=== PATIENT | male | born 1965 | race Two or more races ===

== ENCOUNTER → 2017-06-24 | Day surgery (SDC) | payer BC ==
[~2017-06-24] MED LIST: GABA-586 PO; GABA-587 PO; HYDR12.58 PO; HYDROmorphone 2 MG/ML VIAL IV PRN; IBUP-1060 PO; INSU100I13 SQ; INSU100I15 SQ; IV RINGERS,LACTATED 1000ML 1,000 ML IV SCH; LIDOCAINE 1% PF 2 ML VIAL. ID PRN; LIDOCAINE 2% PF Vial for OR 5 ML VIAL. ONE; LISI-334 PO; METF-620 PO; METF1000 PO; MORPHINE SULFATE 4 MG/ML DISP.SYRIN. IV PRN; NAPR-683 PO; OMEP40CA5 PO; ONDANSETRON PF 4 MG/2 ML VIAL. IV PRN; PROCHLORPERAZINE 10 MG/2 ML VIAL. IV PRN; PROPOFOL 20 ML IV ONE; TRAM50TA PO; fentaNYL PF VIAL 100 MCG/2 ML VIAL IV PRN
[2017-06-24 07:58] VITALS: BP 118/69
--- NOTE | 2017-06-27 13:19 | PATHOLOGY ---
PATHOLOGY REPORT * * * * * * * * FINAL DIAGNOSIS: Colon biopsy, sigmoid colon polyp: - Hyperplastic polyp. COMMENT: There are no adenomatous changes or evidence of malignancy. (JPM:mml; 06/27/2017) REPORT ELECTRONICALLY SIGNED BY: Armando Maradiaga M.D. DATE/TIME: 06/27/2017 13:18 * * * * * * * * GROSS PATHOLOGY: Received in formalin labeled "Edmund Landeros, sigmoid polyp BX," is a segment of ulloa soft tissue measuring 0.4 cm in maximum dimension. The specimen is submitted entirely in cassette A1. (TSD; 06/24/2017) INITIAL CPT CODE(S): A; 75812 Professional services performed by [facility] [place] [address] Technical services performed by [facility] at [address] [place] [address] [address] [address]. SPECIMEN(S) RECEIVED: A.Sigmoid polyp biopsy CLINICAL HISTORY: Screening PATIENT: EDMUND LANDEROS /AGE: 1 1965 (Age: 51) PATIENT #: [id number] ALT CASE #: SPECIMEN COLLECTION DATE: 06/24/2017 SPECIMEN RECEIVED DATE: 06/24/2017 [facility] - [address] [place] [address] - PHONE: [phone] * * * END OF REPORT * * *
== END | disposition home or self-care (01) ==
LOC: ENDOS 05:56
PROVIDERS: ATTEND Internal Medicine Gastroenterology
DX: D12.5 Benign neoplasm of sigmoid colon (principal); K64.0 First degree hemorrhoids; I10 Essential (primary) hypertension; K21.9 Gastro-esophageal reflux disease without esophagitis; E11.9 Type 2 diabetes mellitus without complications
CPT/HCPCS: 45380; 88305; J2704; J2001

== ENCOUNTER 2019-11-25 21:39 | Emergency (ER) | payer BC ==
[~2019-11-25] VITALS: Ht 165.1 cm; Wt 81.8 kg
[~2019-11-25 21:39] MED LIST changes: -GABA-586 PO; -GABA-587 PO; +GABA-689 PO; +GABA300C18 PO; -HYDROmorphone 2 MG/ML VIAL IV PRN; -IV RINGERS,LACTATED 1000ML 1,000 ML IV SCH; -LIDOCAINE 1% PF 2 ML VIAL. ID PRN; -LIDOCAINE 2% PF Vial for OR 5 ML VIAL. ONE; -METF-620 PO; +METF10007 PO; -MORPHINE SULFATE 4 MG/ML DISP.SYRIN. IV PRN; +OMEP40CA45 PO; -OMEP40CA5 PO; -ONDANSETRON PF 4 MG/2 ML VIAL. IV PRN; -PROCHLORPERAZINE 10 MG/2 ML VIAL. IV PRN; -PROPOFOL 20 ML IV ONE; -fentaNYL PF VIAL 100 MCG/2 ML VIAL IV PRN
[2019-11-25] MEDS ORDERED: IV NORMAL SALINE 500ML BAG 500 ML IV SCH (22:00)
--- NOTE | 2019-11-25 22:15 | PHYS DOC ---
Adult General Chief Complaint Chief Complaint: RECTAL BLEED HPI HPI Patient is a 54 year old male with history of hypertension and diabetes mellitus who presents with complaint of rectal bleeding. Patient states he had a normal bowel movement around 1400 today and since then had bright red bleeding from his rectum that became worse prior to arrival to ER and had to use a pad. Patient denies rectal pain, abdominal pain, dizziness, shortness of breath, history of the same problem, history of hemorrhoid or constipation. Patient had blood dripping from his pants at arrival to ER. Review of Systems Review of Systems Constitutional: Denies fever or chills [] Eyes: Denies change in visual acuity, redness, or eye pain [] HENT: Denies nasal congestion or sore throat [] Respiratory: Denies cough or shortness of breath [] Cardiovascular: No additional information not addressed in HPI [] GI: Denies abdominal pain, nausea, vomiting, diarrhea, reports rectal bleed : Denies dysuria or hematuria [] Musculoskeletal: Denies back pain or joint pain [] Integument: Denies rash or skin lesions [] Neurologic: Denies headache, focal weakness or sensory changes [] Endocrine: Denies polyuria or polydipsia [] All other systems were reviewed and found to be within normal limits, except as documented in this note. Current Medications Current Medications Current Medications Medications (Trade) Dose Ordered Sig/Yumiko Start Time Stop Time Status Last Admin Dose Admin Info (CONTRAST GIVEN -- Rx MONITORING) 1 each PRN DAILY PRN 11/25/19 22:45 11/26/19 00:05 DC Iohexol (Omnipaque 300 Mg/ml) 75 ml 1X ONCE 11/25/19 22:45 11/25/19 22:46 DC 11/25/19 22:59 75 ML Sodium Chloride 500 ml @ 500 mls/hr 1X ONCE 11/25/19 22:30 11/25/19 23:29 DC 11/25/19 22:23 500 MLS/HR Allergies Allergies Allergies Coded Allergies Type Severity Reaction Last Updated Verified No Known Drug Allergies 06/24/17 No Physical Exam Physical Exam Constitutional: Well developed, well nourished, mild distress, non-toxic appearance. [] HENT: Normocephalic, atraumatic. Eyes: PERRLA, EOMI, conjunctiva normal, no discharge. [] Neck: Normal range of motion, no tenderness, supple, no stridor. [] Cardiovascular:Heart rate regular rhythm, no murmur [] Lungs & Thorax: Bilateral breath sounds clear to auscultation [] Abdomen: Bowel sounds normal, soft, no tenderness, no masses, no pulsatile masses. Rectal exam in presence of plant anatomist showed fresh bright red and blood clot around rectum, few external hemorrhoid tag, no rectal mass or internal bleeding, After cleaning the blood from perianal area, bleeding was stopped. ] Skin: Warm, dry, no erythema, no rash. [] Back: No tenderness, no CVA tenderness. [] Extremities: No tenderness, no cyanosis, no clubbing, ROM intact, no edema. [] Neurologic: Alert and oriented X 3, no focal deficits noted. [] Psychologic: Affect normal, judgement normal, mood normal. [] Current Patient Data Vital Signs Vital Signs Date Time Temp Pulse Resp B/P (MAP) Pulse Ox O2 Delivery O2 Flow Rate FiO2 11/25/19 23:57 95 18 140/69 (92) 96 Room Air 11/25/19 21:51 98.2 98.2 Lab Values Laboratory Tests Test 11/25/19 22:12 11/25/19 22:45 White Blood Count 8.4 x10^3/uL (4.0-11.0) Red Blood Count 3.82 x10^6/uL (4.30-5.70) L Hemoglobin 12.7 g/dL (13.0-17.5) L Hematocrit 35.2 % (39.0-53.0) L Mean Corpuscular Volume 92 fL (79-100) Mean Corpuscular Hemoglobin 33 pg (25-35) Mean Corpuscular Hemoglobin Concent 36 g/dL (31-37) Red Cell Distribution Width 12.3 % (11.5-14.5) Platelet Count 184 x10^3/uL (140-400) Neutrophils (%) (Auto) 35 % (31-73) Lymphocytes (%) (Auto) 53 % (24-48) H Monocytes (%) (Auto) 8 % (0-9) Eosinophils (%) (Auto) 2 % (0-3) Basophils (%) (Auto) 1 % (0-3) Neutrophils # (Auto) 3.0 x10^3/uL (1.8-7.7) Lymphocytes # (Auto) 4.5 x10^3/uL (1.0-4.8) Monocytes # (Auto) 0.7 x10^3/uL (0.0-1.1) Eosinophils # (Auto) 0.2 x10^3/uL (0.0-0.7) Basophils # (Auto) 0.1 x10^3/uL (0.0-0.2) Prothrombin Time 12.9 SEC (11.7-14.0) Prothrombin Time INR 1.0 (0.8-1.1) Activated Partial Thromboplast Time 32 SEC (24-38) Sodium Level 139 mmol/L (136-145) Potassium Level 3.3 mmol/L (3.5-5.1) L Chloride Level 103 mmol/L (98-107) Carbon Dioxide Level 22 mmol/L (21-32) Anion Gap 14 (6-14) Blood Urea Nitrogen 19 mg/dL (8-26) Creatinine 1.1 mg/dL (0.7-1.3) Estimated GFR (Cockcroft-Gault) 69.2 BUN/Creatinine Ratio 17 (6-20) Glucose Level 112 mg/dL (70-99) H Calcium Level 9.1 mg/dL (8.5-10.1) Total Bilirubin 0.4 mg/dL (0.2-1.0) Aspartate Amino Transferase (AST) 90 U/L (15-37) H Alanine Aminotransferase (ALT) 178 U/L (16-63) H Alkaline Phosphatase 172 U/L (46-116) H Total Protein 7.8 g/dL (6.4-8.2) Albumin 3.8 g/dL (3.4-5.0) Albumin/Globulin Ratio 1.0 (1.0-1.7) Urine Collection Type Unknown Urine Color Yellow Urine Clarity Clear Urine pH 5.0 Urine Specific [place] 1.010 Urine Protein Negative mg/dL (NEG-TRACE) Urine Glucose (UA) 100 mg/dL (NEG) Urine Ketones (Stick) Negative mg/dL (NEG) Urine Blood Negative (NEG) Urine Nitrite Negative (NEG) Urine Bilirubin Negative (NEG) Urine Urobilinogen Dipstick 0.2 mg/dL (0.2 mg/dL) Urine Leukocyte Esterase Negative (NEG) Urine RBC Rare /HPF (0-2) Urine WBC 0 /HPF (0-4) Urine Squamous Epithelial Cells Few /LPF Urine Bacteria 0 /HPF (0-FEW) Urine Mucus Slight /LPF Laboratory Tests 11/25/19 22:12 Laboratory Tests 11/25/19 22:12 EKG EKG [] Radiology/Procedures Radiology/Procedures [facility] [address] [place] [address] IMAGING REPORT Signed PATIENT: VIRGINIA ZEPEDA ACCOUNT: [id number] : 1965 LOCATION: ER AGE: 54 SEX: M EXAM STATUS: REG ER ORD. PHYSICIAN: JENIFER CARRINGTON MD REASON: Rectal bleed, OMNI 300, 75 ML IV PROCEDURE: CT ABD PELV W/ IV CONTRST ONLY Exam: CT abdomen and pelvis with contrast INDICATION: Rectal bleeding TECHNIQUE: Sequential axial images through the abdomen and pelvis obtained following the administration of 75 mL of Omni 300 IV contrast. Sagittal and coronal reformatted images were reconstructed from the axial data and reviewed. Comparisons: None FINDINGS: Heart size is normal. No pericardial effusion. Visualized lung bases are clear. No pleural effusion. Liver, spleen, pancreas, gallbladder and adrenals are unremarkable. Kidneys demonstrate symmetric enhancement. No perinephric inflammation or hydronephrosis. No renal or ureteral calculi are identified. Bladder is distended and appears thin-walled. Prostate is not enlarged. Large and small bowel are unremarkable. Appendix is not identified. No free intra-abdominal air or fluid. No obstruction. Abdominal aorta has a normal course and caliber. Abdominal vasculature is patent. No enlarged intra-abdominal lymph nodes are identified. No suspicious osseous lesions or acute fractures. IMPRESSION: No acute process identified within the abdomen or pelvis. Exposure: One or more of the following in the visualized dose reduction techniques were utilized for this examination: 1. Automated exposure control 2. Adjustment of the MA and/or KV according to patient size 3. Use of iterative of reconstructive technique Electronically signed by: Giuliana Adler MD (11/25/2019 11:16 PM) [id number] DICTATED and SIGNED BY: GIULIANA ADLER MD DATE: 11/25/19 2319 Course & Med Decision Making Course & Med Decision Making Pertinent Labs and Imaging studies reviewed. (See chart for details) Evaluation of patient #54-year-old male patient with complaint of rectal bleeding with bright red blood for several hours. Patient had external hemorrhoids with blood clot in perianal area without bleeding inside of the rectum. Blood clot was cleaned and patient did not have any more bleeding while he was in ER. Patient had elevation of liver enzymes and stated he drink several cans of beer at least once a week and was advised to quit drinking alcohol. Patient was advised to follow-up with GI specialist. Patient stated he had colonoscopy 2 years ago without any problem. Patient was advised to take sitz bath and avoid of constipation and diarrhea. I've spoken with the patient and/or caregivers. I've explained the patient's co ndition, diagnosis and treatment plan based on information available to me at this time. I've answered the patient's and/or caregivers questions and addressed any concerns. The patient and/or caregivers have a good understanding the patient's diagnosis, condition and treatment plan as can be expected at this point. Vital signs have been stabilized. The patient's condition is stable for discharge from the emergency department. The patient will pursue further outpatient evaluation with her primary care provider or other designated consulting physician as outlined in the discharge instructions. Patient and/or caregivers are agreeable to this plan of care and follow-up instructions have been explained in detail. The patient and/or caregivers have received these instructions in written format and expressed understanding of these discharge instructions. The patient and her caregivers are aware that if any significant change in condition or worsening of symptoms should prompt him to immediately return to this of the closest emergency department. If an emergent department is not readily available I would encourage him to call 911. Shirley Disclaimer Dragon Disclaimer This electronic medical record was generated, in whole or in part, using a voice recognition dictation system. Departure Departure Impression: Primary Impression: External bleeding hemorrhoids Additional Impression: Elevated liver function tests Disposition: HOME, SELF-CARE (At 2342) Condition: IMPROVED Referrals: PIERRE SPARROW MD (PCP) FAB MCGEE MD Patient Instructions: Disposable Sitz Bath, Hemorrhoids, Sitz Bath Additional Instructions: Drink plenty of liquids Follow-up with your primary care physician in 2-3 days Return to ER if not getting better Follow-up with GI specialist in 2 or 3 Stop drinking alcohol Thank you for visiting [facility]. We appreciate you trusting us with your care. If any additional problems come up don't hesitate to return to visit us. Please follow up with your primary care provider so they can plan additional care if needed and know about the problem that you had. If symptoms worsen come back to the Emergency Department. Any concerning symptoms that start such as chest pain, shortness of air, weakness or numbness on one side of the body, running high fevers or any other concerning symptoms return to the ER. Scripts Hydrocortisone Acetate (ANUCORT-HC) 25 Mg Supp.rect 25 MG RC BID, #1 SUPP.RECT Prov: JENIFER CARRINGTON MD 11/25/19 Problem Qualifiers JENIFER CARRINGTON MD Nov 25, 2019 22:15
[2019-11-25 22:22] LABS: BASO # 0.1 x10^3/uL (0.0-0.2); BASO % 1 % (0-3); EOS # 0.2 x10^3/uL (0.0-0.7); EOS % 2 % (0-3); HEMATOCRIT 35.2 % (39.0-53.0); HEMOGLOBIN 12.7 g/dL (13.0-17.5); LYMPH # 4.5 x10^3/uL (1.0-4.8); LYMPH % 53 % (24-48); MEAN CORPUSCULAR HEMOGLOBIN 33 pg (25-35); MEAN CORPUSCULAR HGB CONC 36 g/dL (31-37); MEAN CORPUSCULAR VOLUME 92 fL (79-100); MONO # 0.7 x10^3/uL (0.0-1.1); MONO % 8 % (0-9); NEUT % 35 % (31-73); PLATELET COUNT 184 x10^3/uL (140-400); RED BLOOD COUNT 3.82 x10^6/uL (4.30-5.70); RED CELL DISTRIBUTION WIDTH 12.3 % (11.5-14.5); WHITE BLOOD COUNT 8.4 x10^3/uL (4.0-11.0)
[2019-11-25 22:29] LABS: CALCIUM 9.1 mg/dL (8.5-10.1); CREATININE 1.1 mg/dL (0.7-1.3); GFR 69.2; POTASSIUM 3.3 mmol/L (3.5-5.1)
[2019-11-25] MEDS ORDERED: IV NORMAL SALINE 500ML BAG 500 ML IV ONE (22:30)
[2019-11-25 22:39] LABS: PROTHROMBIN TIME PATIENT 12.9 SEC (11.7-14.0)
[2019-11-25 22:40] LABS: ALBUMIN 3.8 g/dL (3.4-5.0); TOTAL BILIRUBIN 0.4 mg/dL (0.2-1.0); TOTAL PROTEIN 7.8 g/dL (6.4-8.2)
[2019-11-25] MEDS ORDERED: IOHEXOL 300 MG/ML 100ML VIAL. IV ONE (22:45)
[2019-11-25] MEDS ORDERED: CONTRAST GIVEN. MC PRN (22:45)
[2019-11-25 22:52] LABS: BILIRUBIN,URINE NEGATIVE (NEG); CLARITY,URINE CLEAR; COLOR,URINE YELLOW; NITRITE,URINE NEGATIVE (NEG); PROTEIN,URINE NEGATIVE (NEG-TRACE); UROBILINOGEN,URINE 0.2 mg/dL (0.2 mg/dL)
[2019-11-25 23:04] LABS: SQUAMOUS EPITHELIAL CELL,UR FEW /LPF
[2019-11-25 23:05] LABS: BACTERIA,URINE 0 /HPF (0-FEW); RBC,URINE RARE /HPF (0-2); WBC,URINE 0 /HPF (0-4)
--- NOTE | 2019-11-25 23:19 | RAD ---
Exam: CT abdomen and pelvis with contrast INDICATION: Rectal bleeding TECHNIQUE: Sequential axial images through the abdomen and pelvis obtained following the administration of 75 mL of Omni 300 IV contrast. Sagittal and coronal reformatted images were reconstructed from the axial data and reviewed. Comparisons: None FINDINGS: Heart size is normal. No pericardial effusion. Visualized lung bases are clear. No pleural effusion. Liver, spleen, pancreas, gallbladder and adrenals are unremarkable. Kidneys demonstrate symmetric enhancement. No perinephric inflammation or hydronephrosis. No renal or ureteral calculi are identified. Bladder is distended and appears thin-walled. Prostate is not enlarged. Large and small bowel are unremarkable. Appendix is not identified. No free intra-abdominal air or fluid. No obstruction. Abdominal aorta has a normal course and caliber. Abdominal vasculature is patent. No enlarged intra-abdominal lymph nodes are identified. No suspicious osseous lesions or acute fractures. IMPRESSION: No acute process identified within the abdomen or pelvis. Exposure: One or more of the following in the visualized dose reduction techniques were utilized for this examination: 1. Automated exposure control 2. Adjustment of the MA and/or KV according to patient size 3. Use of iterative of reconstructive technique Electronically signed by: Giuliana Jonas MD (11/25/2019 11:16 PM) [id number]
[2019-11-25] MEDS ORDERED: HYDR25SU4 RC ×2 (23:46)
[2019-11-25 23:57] VITALS: BP 140/69
== END 2019-11-25 23:57 | disposition home or self-care (01) ==
LOC: ER 21:39
DX: K64.4 Residual hemorrhoidal skin tags (principal); R79.89 Other specified abnormal findings of blood chemistry; I10 Essential (primary) hypertension; E11.9 Type 2 diabetes mellitus without complications
CPT/HCPCS: 36415; 74177; 80053; 81001; 85025; 85610; 85730; 86850; 86900; 86901; 99285; J7040; Q9967

== ENCOUNTER 2021-10-12 07:07 | Emergency (ER) | payer BC ==
[~2021-10-12] VITALS: Ht 167.6 cm; Wt 90.4 kg
[~2021-10-12 07:07] MED LIST changes: +HYDR25SU4 RC; -LISI-334 PO; +LISI20TA18 PO; -OMEP40CA45 PO; +OMEP40CA7 PO
[2021-10-12 07:45] LABS: BASO % 1 % (0-3); EOS # 0.2 x10^3/uL (0.0-0.7); EOS % 3 % (0-3); HEMATOCRIT 39.5 % (39.0-53.0); HEMOGLOBIN 13.2 g/dL (13.0-17.5); LYMPH # 3.3 x10^3/uL (1.0-4.8); LYMPH % 47 % (24-48); MEAN CORPUSCULAR HEMOGLOBIN 32 pg (25-35); MEAN CORPUSCULAR HGB CONC 33 g/dL (31-37); MEAN CORPUSCULAR VOLUME 96 fL (79-100); MONO # 0.5 x10^3/uL (0.0-1.1); MONO % 7 % (0-9); NEUT % 43 % (31-73); PLATELET COUNT 224 x10^3/uL (140-400); RED BLOOD COUNT 4.13 x10^6/uL (4.30-5.70); RED CELL DISTRIBUTION WIDTH 12.6 % (11.5-14.5); WHITE BLOOD COUNT 7.1 x10^3/uL (4.0-11.0)
[2021-10-12] MEDS ORDERED: IOHEXOL 300 MG/ML 100ML VIAL. IV ONE (07:45)
[2021-10-12 07:58] LABS: CALCIUM 8.9 mg/dL (8.5-10.1); CREATININE 1.1 mg/dL (0.7-1.3); POTASSIUM 3.7 mmol/L (3.5-5.1)
--- NOTE | 2021-10-12 08:31 | RAD ---
EXAM: CT HEAD WITHOUT CONTRAST. HISTORY: Headache, right facial droop. TECHNIQUE: Computed tomography of the head was performed without intravenous contrast. One or more of the following individualized dose reduction techniques were utilized for this examination: 1. Automated exposure control. 2. Adjustment of the mA and/or kV according to patient size. 3. Use of iterative reconstruction technique. COMPARISON: None. FINDINGS: There is no intracranial hemorrhage. James-white differentiation is preserved. The ventricle s are normal in size and position. The visualized paranasal sinuses appear clear. There is a chronic depressed fracture of the left medi al orbital wall. The temporal bones are unremarkable. The calvarium reveals no suspicious lesions. IMPRESSION: 1. No acute intracranial findings. Electronically signed by: Rusty Maza MD (10/12/2021 8:29 AM) [id number]
--- NOTE | 2021-10-12 08:36 | RAD ---
EXAM: 1. CTA HEAD WITH AND WITHOUT CONTRAST. 2. CTA NECK WITH AND WITHOUT CONTRAST. HISTORY: Headache, right facial droop. TECHNIQUE: Computed tomographic angiography of the head and neck was performed before and after the i ntravenous administration of iodinated contrast. Three-dimensional reconstructions were also performe d. One or more of the following individualized dose reduction techniques were utilized for this exami nation: 1. Automated exposure control. 2. Adjustment of the mA and/or kV according to patient size. 3. Use of iterative reconstruction technique. COMPARISON: None. FINDINGS: Angiographic findings: The aortic arch has a typical branching pattern. There is no arch vessel steno sis. There are minimal atherosclerotic calcifications at the carotid bulbs without stenosis. Both internal carotid arteries are patent without stenosis. The external carotid systems are patent. The vertebral arteries are patent. The basilar artery is patent. Both posterior cerebral arteries are patent. The posterior communicatin g arteries are visualized. There are mild atherosclerotic calcifications along the cavernous internal carotid arteries. There is no significant luminal narrowing. The middle cerebral arteries are patent. The anterior cerebral art eries are patent. The anterior communicating artery is visualized. Nonangiographic findings: There is no intracranial hemorrhage. James-white differentiation is preserve d. The ventricles are normal in size and position. There is chronic depressed fracture of the left medial orbital wall. There is mild mucosal thickening within the sinuses. The orbits are unremarkable. The temporal bones are unremarkable. Bone windows r eveal no suspicious lesions. The lung apices demonstrate calcified granulomas in the right upper lobe . There is fatty atrophy of both parotid glands. The submandibular glands are unremarkable. The thyroid gland demonstrates no suspicious lesions. There are no laryngeal or pharyngeal masses. There are no pathologically enlarged lymph nodes. IMPRESSION: 1. No intracranial stenosis or aneurysm. 2. No hemodynamically significant cervical arterial stenosis. PQRS Compliance Statement - Stenosis calculations for CT, MR and conventional angiography are based u adriana measurement of the distal ICA diameter in accordance with the NASCET methodology. Stenosis calcu lations for carotid ultrasound studies are derived from validated velocity criteria which are known t o correlate with the NASCET methodology. Electronically signed by: Rusty Maza MD (10/12/2021 8:33 AM) [id number]
[2021-10-12 08:46] VITALS: BP 159/94
--- NOTE | 2021-10-12 08:48 | PHYS DOC ---
Past Medical History Past Medical History: Diabetes-Type II, Hypertension Past Surgical History: Appendectomy Smoking Status: Never Smoker Alcohol Use: Occasionally General Adult EDM: Chief Complaint: NEURO SYMPTOMS/DEFICITS HPI: HPI: Patient is a 55 year old male with history of DM, HTN who presents with headache and right-sided facial droop. Patient states that his symptoms started yesterday with a right-sided headache. States that the pain is on the right side of his face and towards the base of his skull on the right. States that this is the worst headache he has had. Denies thunderclap onset. No fevers or chills. Headache improved with tramadol. This morning he awoke and had a right-sided facial droop and increasing tearing of his right eye. Last known without facial droop at 10 PM on 10/11/2021. Denies speech difficulty, vision changes, extremity weakness or numbness (aside from his chronic peripheral neuropathy). No history of stroke or atrial fibrillation. Review of Systems: Review of Systems: Constitutional: Denies fever or chills. [] Eyes: Denies change in visual acuity. [] HENT: Denies nasal congestion or sore throat. [] Respiratory: Denies cough or shortness of breath. [] Cardiovascular: Denies chest pain or edema. [] GI: Denies abdominal pain, nausea, vomiting, bloody stools or diarrhea. [] : Denies dysuria. [] Musculoskeletal: Denies back pain or joint pain. [] Integument: Denies rash. [] Neurologic: Reports headache and right-sided facial droop. Denies extremity weakness or sensory changes Psychiatric: Denies depression or anxiety. [] Heart Score: C/O Chest Pain: No Current Medications: Current Medications Medications (Trade) Dose Ordered Sig/Yumiko Start Time Stop Time Status Last Admin Dose Admin Iohexol (Omnipaque 300 Mg/ml) 75 ml 1X ONCE 10/12/21 07:45 10/12/21 07:48 DC Allergies: Allergies: Allergies Coded Allergies Type Severity Reaction Last Updated Verified No Known Drug Allergies 10/12/21 No Physical Exam: PE: Constitutional: Well developed, well nourished, no acute distress, non-toxic appearance. [] HENT: Normocephalic, atraumatic, bilateral auditory canals and TMs normal. Eyes: PERRLA, EOMI. Right eye tearing frequently with mild conjunctival injection Neck: Normal range of motion, no tenderness, supple, no stridor. [] Cardiovascular:Heart rate regular rhythm, no murmur [] Lungs & Thorax: Bilateral breath sounds clear to auscultation [] Abdomen: Bowel sounds normal, soft, no tenderness, no masses, no pulsatile mas ses. [] Skin: Warm, dry, no erythema, no rash. [] Extremities: No tenderness, no cyanosis, no clubbing, ROM intact, no edema. [] Neurologic: Alert and oriented to person, place, and time. EOMI. Visual ramachandran intact. +right-sided facial droop, he does have some movement of the right side of his face (partial paralysis), but his weakness includes his forehead with obvious flattening of the wrinkles of the forehead. No upper or lower extremity drift. Sensation intact bilaterally. No ataxia. No dysarthria or aphasia No inattention or extinction. Current Patient Data: Labs: Laboratory Tests Test 10/12/21 07:17 10/12/21 07:28 Glucose (Fingerstick) 202 mg/dL (70-99) H White Blood Count 7.1 x10^3/uL (4.0-11.0) Red Blood Count 4.13 x10^6/uL (4.30-5.70) L Hemoglobin 13.2 g/dL (13.0-17.5) Hematocrit 39.5 % (39.0-53.0) Mean Corpuscular Volume 96 fL (79-100) Mean Corpuscular Hemoglobin 32 pg (25-35) Mean Corpuscular Hemoglobin Concent 33 g/dL (31-37) Red Cell Distribution Width 12.6 % (11.5-14.5) Platelet Count 224 x10^3/uL (140-400) Neutrophils (%) (Auto) 43 % (31-73) Lymphocytes (%) (Auto) 47 % (24-48) Monocytes (%) (Auto) 7 % (0-9) Eosinophils (%) (Auto) 3 % (0-3) Basophils (%) (Auto) 1 % (0-3) Neutrophils # (Auto) 3.0 x10^3/uL (1.8-7.7) Lymphocytes # (Auto) 3.3 x10^3/uL (1.0-4.8) Monocytes # (Auto) 0.5 x10^3/uL (0.0-1.1) Eosinophils # (Auto) 0.2 x10^3/uL (0.0-0.7) Basophils # (Auto) 0.0 x10^3/uL (0.0-0.2) Sodium Level 135 mmol/L (136-145) L Potassium Level 3.7 mmol/L (3.5-5.1) Chloride Level 101 mmol/L (98-107) Carbon Dioxide Level 25 mmol/L (21-32) Anion Gap 9 (6-14) Blood Urea Nitrogen 17 mg/dL (8-26) Creatinine 1.1 mg/dL (0.7-1.3) Estimated GFR (Cockcroft-Gault) 69.0 Glucose Level 207 mg/dL (70-99) H Calcium Level 8.9 mg/dL (8.5-10.1) Laboratory Tests 10/12/21 07:28 Laboratory Tests 10/12/21 07:28 Vital Signs: Vital Signs Date Time Temp Pulse Resp B/P (MAP) Pulse Ox O2 Delivery O2 Flow Rate FiO2 10/12/21 07:15 98.3 85 18 197/112 (140) 100 Room Air 98.3 EKG: EKG: [] Sinus rhythm. Rate 71. Normal axis. Normal intervals. No ST segment changes, pathologic Q waves, or pathologic T wave inversion. Radiology/Procedures: Radiology/Procedures: [] Impression: [facility] [address] [place] [address] IMAGING REPORT Signed PATIENT: VIRGINIA ZEPEDA ACCOUNT: [id number] : 1965 LOCATION: ER AGE: 55 SEX: M EXAM STATUS: REG ER ORD. PHYSICIAN: PRISCILLA FREIRE MD REASON: R facial droop, headache PROCEDURE: CT HEAD WO CONTRAST EXAM: CT HEAD WITHOUT CONTRAST. HISTORY: Headache, right facial droop. TECHNIQUE: Computed tomography of the head was performed without intravenous contrast. One or more of the following individualized dose reduction techniques were utilized for this examination: 1. Automated exposure control. 2. Adjustment of the mA and/or kV according to patient size. 3. Use of iterative reconstruction technique. COMPARISON: None. FINDINGS: There is no intracranial hemorrhage. James-white differentiation is preserved. The ventricles are normal in size and position. The visualized paranasal sinuses appear clear. There is a chronic depressed fracture of the left medial orbital wall. The temporal bones are unremarkable. The calvarium reveals no suspicious lesions. IMPRESSION: 1. No acute intracranial findings. Electronically signed by: Rusty Maza MD (10/12/2021 8:29 AM) [id number] DICTATED and SIGNED BY: PIRSCILLA MAZA MD DATE: 10/12/21 [id number] [facility] [address] [place] [address] IMAGING REPORT Signed PATIENT: VIRGINIA ZEPEDA ACCOUNT: [id number] : 1965 LOCATION: ER AGE: 55 SEX: M EXAM STATUS: REG ER ORD. PHYSICIAN: PRISCILLA FREIRE MD REASON: R facial droop, headache PROCEDURE: CT ANGIOGRAPHY HEAD AND NECK EXAM: 1. CTA HEAD WITH AND WITHOUT CONTRAST. 2. CTA NECK WITH AND WITHOUT CONTRAST. HISTORY: Headache, right facial droop. TECHNIQUE: Computed tomographic angiography of the head and neck was performed before and after the intravenous administration of iodinated contrast. Three- dimensional reconstructions were also performed. One or more of the following individualized dose reduction techniques were utilized for this examination: 1. Automated exposure control. 2. Adjustment of the mA and/or kV according to patient size. 3. Use of iterative reconstruction technique. COMPARISON: None. FINDINGS: Angiographic findings: The aortic arch has a typical branching pattern. There is no arch vessel stenosis. There are minimal atherosclerotic calcifications at the carotid bulbs without stenosis. Both internal carotid arteries are patent without stenosis. The external carotid systems are patent. The vertebral arteries are patent. The basilar artery is patent. Both posterior cerebral arteries are patent. The posterior communicating arteries are visualized. There are mild atherosclerotic calcifications along the cavernous internal carotid arteries. There is no significant luminal narrowing. The middle cerebral arteries are patent. The anterior cerebral arteries are patent. The anterior communicating artery is visualized. Nonangiographic findings: There is no intracranial hemorrhage. James-white differentiation is preserved. The ventricles are normal in size and position. There is chronic depressed fracture of the left medial orbital wall. There is mild mucosal thickening within the sinuses. The orbits are unremarkable. The temporal bones are unremarkable. Bone windows reveal no suspicious lesions. The lung apices demonstrate calcified granulomas in the right upper lobe. There is fatty atrophy of both parotid glands. The submandibular glands are unremarkable. The thyroid gland demonstrates no suspicious lesions. There are no laryngeal or pharyngeal masses. There are no pathologically enlarged lymph nodes. IMPRESSION: 1. No intracranial stenosis or aneurysm. 2. No hemodynamically significant cervical arterial stenosis. PQRS Compliance Statement - Stenosis calculations for CT, MR and conventional angiography are based upon measurement of the distal ICA diameter in accordance with the NASCET methodology. Stenosis calculations for carotid ultrasound studies are derived from validated velocity criteria which are known to kayden elate with the NASCET methodology. Electronically signed by: Rusty Maza MD (10/12/2021 8:33 AM) [id number] DICTATED and SIGNED BY: PRISCILLA MAZA MD DATE: 10/12/21 [id number] 0 Course & Med Decision Making: Course & Med Decision Making Pertinent Labs and Imaging studies reviewed. (See chart for details) Patient 55-year-old male with history of HTN, DM who presents with headache and right-sided facial droop. Exam most consistent with CN7 weakness with obvious forehead involvement, however his severe headache is atypical for flores's palsy so neuroimgaging was obtained with CT/CTA and was ultimately negative. I have a low suspicion for stroke given isolated CN7 weakness, so do not feel that further work up or admission is indicated. Will start valacylcovir and prednisone and give precautions for right eye with advice for saline drops and taping it shut at night. Return precautions provided for any new stroke symptoms such as arm/leg weakness, numbness, ataxia, speech difficulty etc. Dragon Disclaimer: Dragon Disclaimer: This electronic medical record was generated, in whole or in part, using a voice recognition dictation system. Departure Departure Impression: Primary Impression: Flores's palsy Disposition: HOME / SELF CARE / HOMELESS Condition: STABLE Referrals: PIERRE SPARROW MD (PCP) Schedule a follow up appointment later this week. MILKA VITAL MD Patient Instructions: Flores's Palsy Additional Instructions: I believe you have a problem isolated to the facial nerve (cranial nerve VII). This is called Flores's palsy. It typically takes weeks to potentially months to resolve. There are 2 medications that have shown some promise of shorten the duration of symptoms. Please take the full 7-day course as prescribed of valacyclovir and prednisone. The other major factor is keeping your eye safe. You will need to use saline drops for when your eye feels dry while you are awake. While sleeping you need to tape your eye shut so that it does not get scratched or overly dry since you cannot fully close your eye. If you develop pain in your eye please return to the emergency department or schedule an appointment with an clinical documentation consultant. Scripts Valacyclovir Hcl (VALACYCLOVIR) 1,000 Mg Tablet 1 TAB PO TID for 7 Days, #21 TAB 0 Refills Prov: PRISCILLA FREIRE MD 10/12/21 Prednisone (PREDNISONE) 50 Mg Tablet 1 TAB PO DAILY, #7 TAB Prov: PRISCILLA FREIRE MD 10/12/21 PRISCILLA FREIRE MD Oct 12, 2021 08:48
[2021-10-12] MEDS ORDERED: VALA10008 PO (08:55)
[2021-10-12] MEDS ORDERED: PRED50TA PO (08:55)
--- NOTE | 2021-10-12 10:18 | EKG ---
[facility] [address] [place] [address] Test Date: 2021-10-12 Test Time: 07:36:17 Pat Name: VIRGINIA ZEPEDA Department: Room: Gender: M Emr Specialist: : 1965 Requested By: PRISCILLA FREIRE Order Number: [id number] Reading MD: Travis Wood MD Measurements Intervals [place] Rate: 71 P: 37 DC: 152 QRS: 24 QRSD: 104 T: 36 QT: 392 QTc: 431 Interpretive Statements SINUS RHYTHM Electronically Signed On 10-12-2021 15:32:25 [employer] by Travis Wood MD
== END 2021-10-12 09:15 | disposition home or self-care (01) ==
LOC: ER 07:07
DX: G51.0 Bell's palsy (principal); R51.9 Headache, unspecified; E11.9 Type 2 diabetes mellitus without complications; I10 Essential (primary) hypertension
CPT/HCPCS: 36415; 70450; 70496; 70498; 80048; 82962; 85025; 93005; 99285; Q9967